=== PATIENT | female | born 1985 | race Caucasian/White ===

== ENCOUNTER → 2021-01-11 | Outpatient (CLI) | payer OTHER ==
--- NOTE | 2021-01-11 08:54 | RAD ---
EXAM: Pelvic sonogram. HISTORY: Pain. TECHNIQUE: Sonographic imaging of the pelvis was performed. COMPARISON: None. FINDINGS: The uterus measures 10.8 x 4.3 x 3.8 cm. The endometrial stripe measures 8 mm in thickness. The ovaries are normal in size and demonstrate normal blood flow. There is no pelvic free fluid. IMPRESSION: Unremarkable pelvic sonogram. Electronically signed by: Alexandria Street MD (01/11/2021 8:52 AM) [id number]
== END ==
LOC: US 07:53
PROVIDERS: ATTEND Obstetrics & Gynecology
DX: R10.2 Pelvic and perineal pain (principal); M54.5 Low back pain
CPT/HCPCS: 76856